=== PATIENT | male | born 2000 | race Two or more races ===

== ENCOUNTER 2025-06-26 18:22 | Emergency (ER) | payer MEDICAID, SELFPAY ==
--- NOTE | 2025-06-26 18:53 | XR_ITS ---
Examination: Lumbar spine 3 views Clinical indication collateral, lateral lumbar spine 3 views Date and time: June 26, 2025 1903 hours INDICATIONS: Work injury to the back today with back pain. FINDINGS: Thoracolumbar dextroscoliosis 12 degrees No lumbar fracture. No spondylolisthesis. Mild disc narrowing L5-S1 IMPRESSION: Normal lumbar fracture. Mild disc narrowing L5-S1
[2025-06-26 19:12] VITALS: BP 125/82; PULSE 91; RESP 17; TEMP 37; O2SAT 98
--- NOTE | 2025-06-26 19:47 | EDNOTE_ITS ---
ED Back Injury Pain RME/HPI General Chief Complaint: Back Pain/Injury Stated Complaint: BACK PAIN Time Seen by Provider: 06/26/25 18:26 Arrival date/time: 06/26/25 18:22 This is a case of a 25-year-old male who came into the emergency room due to lower back pain history of present illness started today while working after lifting heavy boxes started to have pain on the lower back patient denies any numbness weakness tingling sensation incontinence to urine or stool Related Data Previous Rx's ?Medication ?Instructions ?Recorded omeprazole magnesium 20 mg 20 mg PO QDAY #14 tabs 05/10 02/24 tablet,delayed release (Prilosec OTC) cyclobenzaprine 10 mg tablet 10 mg PO BID #10 tabs ibuprofen 600 mg tablet 600 mg PO Q6H PRN pain #20 t abs 06/26/25 Allergies Allergy/AdvReac Type Severity Reaction Status Date / Time No Known Allergies Allergy Verified 06/26/25 18:25 Course Orders Category Date Time Status XR lumbar spine 2-3V Stat Exams 06/26/25 18:53 Taken HYDROcodone*/APAP 5/325 [[place] 5/325] Med 06/26/25 19:44 Discontinued 1 tab PO X1 ONE Ketorolac Inj [Toradol Inj] Med 06/26/25 19:44 Discontinued 30 mg IM X1 ONE Vital Signs Vital signs: Vital Signs Temperature 98.6 F 06/26/25 19:12 Pulse Rate 91 06/26/25 19:12 Respiratory Rate 17 06/26/25 19:12 Blood Pressure 125/82 06/26/25 19:12 Pulse Oximetry (%) 98 06/26/25 19:12 Oxygen Delivery Method Room Air 06/26/25 19:12 Back Pain / Injury Medications / Prescriptions Medication administrations:: Medication Administration History Discontinued Medications Hydrocodone Bitart/Acetaminophen (Hydrocodone/Apap 5/325 Tablet) 1 tab PO X1 ONE Stop: 06/26/25 19:45 Ketorolac Tromethamine (Ketorolac Inj 60 Mg/2 Ml Vial) 30 mg IM X1 ONE Stop: 06/26/25 19:45 Discharge Plan Plan Patient Disposition: HOME (Self Care) Patient condition on transfer: Stable Prescriptions/Referrals Prescriptions/Med Rec: New ibuprofen 600 mg tablet 600 mg PO Q6H PRN (Reason: pain) Qty: 20 0RF cyclobenzaprine 10 mg tablet 10 mg PO BID Qty: 10 0RF No Action omeprazole magnesium [Prilosec OTC] 20 mg tablet,delayed release (DR/EC) 20 mg PO QDAY Qty: 14 0RF Referrals: No Primary/Family,Physician [Primary Care Provider] - In 1 week Problem List Clinical Impression: Lumbar sprain Patient/Caregiver Discharge Instructions Education Materials: ED Back Sprain/Strain Additional Instructions: Follow-up with your primary care physician in 2 days for reevaluation worsening symptoms or any emergent concerns such as numbness weakness tingling sensation incontinence to urine or stool call 911 or go to the nearest emergency room ice pack and warm compress as needed for pain take your medication as directed Print Language: Uzbek Stand Alone Forms: [employer] Award Info., Patient Portal Info Letter PA/ALTERNATIVE DISPUTE RESOLUTION MEDIATOR Supervising Physician PA/ALTERNATIVE DISPUTE RESOLUTION MEDIATOR Supervising Physician: Dr Nguyen
[2025-06-26] MEDS: KETOROLAC INJ 60 MG/2 ML VIAL 30 MG IM (20:13)
[2025-06-26] MEDS: HYDROcodone/APAP 5/325 TABLET 1 TAB PO (20:13)
== END 2025-06-26 20:15 | disposition home or self-care (01) ==
PROVIDERS: Emergency Provider Emergency Medicine
DX: S33.5XXA Sprain of ligaments of lumbar spine, initial encounter (principal); X50.0XXA Overexertion from strenuous movement or load, initial encounter
CPT/HCPCS: 72100; 96372; 99283; J1885; A9270